=== PATIENT | female | born 1940 | race Caucasian/White ===

== ENCOUNTER → 2016-11-28 | Outpatient (CLI) | payer MEDICARE, BC ==
[~2016-11-28] MED LIST: CLARITIN10 MG PO; ZOLOFT50 MG PO
== END ==
LOC: KOH-I 11-23 10:30
DX: G89.4 Chronic pain syndrome (principal); Z88.8 Allergy status to other drugs, medicaments and biological substances; R06.02 Shortness of breath; M79.605 Pain in left leg; M79.604 Pain in right leg
CPT/HCPCS: 93970

== ENCOUNTER → 2017-02-28 | Outpatient (CLI) | payer MEDICARE, BC | LOC: RT 13:29 | DX: R09.02 Hypoxemia (principal) | CPT/HCPCS: 36600; 82803 ==